=== PATIENT | male | born 1965 | race Caucasian/White ===

== ENCOUNTER 2020-08-11 17:57 | Emergency (ER) | payer OTHER ==
[~2020-08-11] VITALS: Ht 180.3 cm; Wt 126.8 kg
[2020-08-11 18:53] VITALS: BP 182/112; Ht 180.3 cm; Wt 126.8 kg
[2020-08-11] MEDS ORDERED: DICLOFENAC SODI50 MG PO (20:59)
== END 2020-08-11 21:50 | disposition home or self-care (01) ==
LOC: D.ER 17:57
DX: S86.812A Strain of other muscle(s) and tendon(s) at lower leg level, left leg, initial encounter (principal); M76.62 Achilles tendinitis, left leg; E78.5 Hyperlipidemia, unspecified; I10 Essential (primary) hypertension; X58.XXXA Exposure to other specified factors, initial encounter